=== PATIENT | male | born 2000 | race Two or more races ===

== ENCOUNTER 2020-02-28 17:51 | Emergency (ER) | payer MEDICAID ==
[~2020-02-28] VITALS: Ht 160 cm; Wt 87.0 kg
--- NOTE | 2020-02-28 18:50 | NUR ---
REPORT FROM FAUSTO REID AT THIS TIME
--- NOTE | 2020-02-28 19:27 | NUR ---
COVID SWAB COLLECTED AND WALKED TO THE LAB
[2020-02-28 20:04] VITALS: BP 101/56
== END 2020-02-28 20:09 | disposition home or self-care (01) ==
LOC: ED 18:19
DX: J12.9 Viral pneumonia, unspecified (principal); R05 Cough; Z20.828 Contact with and (suspected) exposure to other viral communicable diseases
CPT/HCPCS: 36415; 71045; 87635; 99284